=== PATIENT | female | born 1945 | race Caucasian/White ===

== ENCOUNTER → 2020-06-13 | Outpatient (CLI) | payer MEDICARE, BC ==
[2020-06-13 13:17] LABS: BASO % 0.5 % (0.0-1.0); EOS % 0.2 % (1.0-4.0); HEMATOCRIT 38.1 % (37.0-47.0); LYMPH # 1.4 10*3/uL (1.3-4.4); LYMPH % 34.1 % (27.0-41.0); MEAN CELL VOLUME 93.8 fl (81.0-99.0); MEAN CORPUSCULAR HGB 29.8 pg (27.0-31.0); MEAN CORPUSCULAR HGB CONC 31.8 g/dl (33.0-37.0); MEAN PLATELET VOLUME 10.8 fl (9.6-12.3); MONO # 0.3 10*3/uL (0.1-1.0); MONO % 7.7 % (3.0-9.0); NEUT # 2.4 10*3/uL (2.3-7.9); NEUT % 57.3 % (47.0-73.0); PLATELET COUNT AUTOMATED 170 10*3/uL (130-400); RED BLOOD COUNT 4.06 10*6/uL (4.10-5.10); RED CELL DISTRI WIDTH 12.7 % (0-14.5); WHITE BLOOD COUNT 4.2 10*3/uL (4.8-10.8)
[2020-06-13 13:45] LABS: ALBUMIN 3.4 gm/dl (3.1-4.5); CREATININE 1.61 mg/dL (0.55-1.02); POTASSIUM 4.5 mmol/L (3.5-5.1); URIC ACID 5.7 mg/dL (2.6-6.0)
== END | disposition home or self-care (01) ==
LOC: LAB 12:47
PROVIDERS: ATTEND Internal Medicine Nephrology
DX: I12.9 Hypertensive chronic kidney disease with stage 1 through stage 4 chronic kidney disease, or unspecified chronic kidney disease (principal); E11.22 Type 2 diabetes mellitus with diabetic chronic kidney disease; N18.9 Chronic kidney disease, unspecified; E21.3 Hyperparathyroidism, unspecified; K91.1 Postgastric surgery syndromes

== ENCOUNTER 2020-12-21 11:47 | Observation (INO) | payer MEDICARE, BC ==
[~2020-12-21] VITALS: Ht 165.1 cm; Wt 90.8 kg
[2020-12-21] VITALS (8 sets, daily range): BP systolic 142–165; BP diastolic 49–92
[2020-12-21 12:24] LABS: BASO % 0.2 % (0.0-1.0); HEMATOCRIT 40.3 % (37.0-47.0); LYMPH # 0.6 10*3/uL (1.3-4.4); LYMPH % 11.7 % (27.0-41.0); MEAN CORPUSCULAR HGB CONC 31.5 g/dl (33.0-37.0); MONO # 0.2 10*3/uL (0.1-1.0); MONO % 3.9 % (3.0-9.0); NEUT # 4.5 10*3/uL (2.3-7.9); PLATELET COUNT AUTOMATED 192 10*3/uL (130-400); RED BLOOD COUNT 4.24 10*6/uL (4.10-5.10); RED CELL DISTRI WIDTH 13.1 % (0-14.5); WHITE BLOOD COUNT 5.4 10*3/uL (4.8-10.8)
[2020-12-21 12:34] LABS: ACT PARTIAL THROMBO TIME 27.5 SECONDS (20.0-32.1)
[2020-12-21 13:32] LABS: ALBUMIN 3.7 gm/dl (3.1-4.5); ALKALINE PHOSPHATASE 85 U/L (45-117); BUN 22 mg/dl (7-24); CHLORIDE 111 mmol/L (98-107); CREATININE 1.85 mg/dL (0.55-1.02); LIPASE 131 U/L (73-393); POTASSIUM 4.8 mmol/L (3.5-5.1); SGOT/AST 13 IU/L (3-35); SGPT/ALT 14 U/L (12-78); SODIUM 139 mmol/L (136-145); TOTAL PROTEIN 7.8 gm/dL (6.4-8.2)
[2020-12-21 13:34] LABS: TROPONIN I < 0.015 ng/ml (<0.045)
[2020-12-21 14:24] LABS: BILIRUBIN Negative (Negative); BLOOD Negative (Negative); CLARITY Clear (Clear); COLOR Yellow (Yellow); GLUCOSE Negative (Negative); KETONE Negative (Negative); LEUKO ESTERASE Negative (Negative); NITRITE Negative (Negative); PH 5.5 (4.5-8.0); UROBILINOGEN 0.2 E.U./dl (0.0-1.0)
[2020-12-21 14:33] LABS: EPITHELIAL CELLS 0-2; FINE GRANULAR CAST 0-2; WBC 0-2 wbc/hpf (0-5)
[2020-12-21] MEDS ORDERED: SIMVASTATIN20 MG PO (18:30)
[2020-12-21] MEDS ORDERED: AMLODIPINE BESY10 MG PO (18:31)
[2020-12-21] MEDS ORDERED: CYMBALTA60 MG PO (18:31)
[2020-12-21] MEDS ORDERED: GABAPENTIN800 MG PO (18:31)
[2020-12-21] MEDS ORDERED: Rocaltrol0.25 MCG PO (18:32)
[2020-12-21] MEDS ORDERED: Amaryl2 MG PO (18:32)
[2020-12-21] MEDS ORDERED: LOSARTAN POTASS50 M1 PO (18:32)
[2020-12-22] VITALS: BP 135/84
[2020-12-22 06:17] LABS: CREATININE 1.79 mg/dL (0.55-1.02)
[2020-12-22 06:25] LABS: FREE T4 0.97 ng/dl (0.76-1.46); THYROID STIM HORMONE (HS) 2.74 uIU/ml (0.358-4.75)
[2020-12-22 08:00] VITALS: BP 154/53
== END 2020-12-22 13:06 | disposition home or self-care (01) ==
LOC: ED 11:47 → EDHOLD 15:23 → 5E 16:22
PROVIDERS: Emergency Medicine; Family Medicine; ADMIT Internal Medicine; ATTEND Internal Medicine
DX: E11.649 Type 2 diabetes mellitus with hypoglycemia without coma (principal); N17.9 Acute kidney failure, unspecified; R53.1 Weakness; R00.1 Bradycardia, unspecified; R79.89 Other specified abnormal findings of blood chemistry; I10 Essential (primary) hypertension; Z71.89 Other specified counseling